=== PATIENT | male | born 1995 | race Caucasian/White ===

== ENCOUNTER 2017-01-28 15:34 | Emergency (ER) | payer OTHER ==
[2017-01-28 15:52] VITALS: BP 108/70
--- NOTE | 2017-01-28 16:24 | UC ---
Throat Pain/Nasal Aly HPI - HPI Summary HPI Summary: This is an otherwise healthy 21 yo male who presents with c/o ST and body aches for the last 3d. He reports associated body aches and feverish feeling, but has not measured his temp. He reports taking a couple of Advil yesterday, otherwise no home therapies. His roommate has had a recent cold, otherwise no sick contacts. - History of Current Complaint Chief Complaint: UCGeneralIllness Stated Complaint: THROAT PAIN - Allergies/Home Medications Allergies/Adverse Reactions: Allergies Allergy/AdvReac Type Severity Reaction Status Date / Time No Known Allergies Allergy Verified 01/28/17 15:52 Home Medications: Home Medications Cetirizine* [ZyrTEC 10 MG TAB*] 10 mg PO DAILY PRN 01/28/17 [History Confirmed 01/28/17] PMH/Surg Hx/FS Hx/Imm Hx Previously Healthy: Yes - Surgical History Surgical History: None - Family History Known Family History: Positive: None - Social History Alcohol Use: Occasionally Substance Use Type: None Smoking Status (MU): Never Smoked Tobacco Review of Systems Constitutional: Chills, Fatigue Skin: Negative Eyes: Negative ENT: Sore Throat Respiratory: Negative Cardiovascular: Negative Gastrointestinal: Negative Genitourinary: Negative Motor: Negative Neurovascular: Negative Musculoskeletal: Negative Neurological: Negative Psychological: Negative Is Patient Immunocompromised?: No All Other Systems Reviewed And Are Negative: Yes Physical Exam Triage Information Reviewed: Yes Appearance: Well-Appearing Vital Signs: Initial Vital Signs Temp 99.8 F 01/28/17 15:48 Pulse 88 01/28/17 15:48 Resp 18 01/28/17 15:48 BP 108/70 01/28/17 15:48 Pulse Ox 100 01/28/17 15:48 Vital Signs Reviewed: Yes ENT: Positive: Pharyngeal erythema, TMs normal, Tonsillar swelling. Negative: Nasal congestion, Tonsillar exudate Neck: Positive: Supple, Nontender, Enlarged Nodes @ - anterior cervical LAD Respiratory: Positive: Lungs clear, Normal breath sounds. Negative: Crackles, Rhonchi, Wheezing Cardiovascular Exam: Normal Cardiovascular: Positive: RRR, No Murmur Abdominal Exam: Normal Abdomen Description: Positive: Soft Musculoskeletal: Positive: Strength Intact Neurological Exam: Normal Neurological: Positive: Alert Psychological Exam: Normal Skin Exam: Normal Skin: Negative: rashes Diagnostics - Laboratory Diagnostic Studies Completed/Ordered: Rapid strep - neg Throat Pain/Nasal Course/Dx - Course Course Of Treatment: Patient presents with 3d h/o ST and body aches. No resp sxs. Pharyngx injected with anterior cervical LAD. Rapid strep neg. Test for mono. Recommend continuing symptomatic management. Follow up with PCP prn - Differential Dx/Diagnosis Differential Diagnosis/HQI/PQRI: Laryngitis, Peritonsillar Abscess, Pharyngitis , Tonsillitis Provider Diagnoses: 1. Acute pharyngitis Discharge - Discharge Plan Condition: Stable Disposition: HOME Patient Education Materials: Pharyngitis (ED) Referrals: [facility], [facility] [Primary Care Provider] - If Needed Additional Instructions: Instructions: 1. Continue to use ibuprofen for control of pain and fever 2. [facility] testing should be back tomorrow, you will be contacted with a positive result 3. Keep up with hydration at home
[2017-01-28 18:25] LABS: EBV Response YES
[2017-01-28 18:55] LABS: Mono Internal Control QC Line Present
[2017-01-30 14:53] LABS: EBV Capsid Ag IgG Ab Positive (Negative); EBV Capsid Ag IgM Ab Negative (Negative)
== END 2017-01-28 16:47 | disposition home or self-care (01) ==
LOC: UCEAST 15:34
DX: J02.9 Acute pharyngitis, unspecified (principal); M79.1 Myalgia; R53.83 Other fatigue; R68.83 Chills (without fever)
CPT/HCPCS: 36415; 86308; 86664; 86665; 87651; 99201; G0463

== ENCOUNTER 2017-03-09 15:27 | Emergency (ER) | payer OTHER ==
[2017-03-09 15:33] VITALS: BP 111/61
--- NOTE | 2017-03-09 15:58 | ED ---
Neck Pain - HPI Summary HPI Summary: 21 year old male presents with severe neck pain and fever. - History of Current Complaint Chief Complaint: UCGeneralIllness Stated Complaint: NECK PAIN, FEVER Time Seen by Provider: 03/09/17 15:37 Hx Obtained From: Patient Onset/Duration Of Injury/Symptoms: Minutes Timing: Constant Onset/Duration: Started days ago Severity Initially: Moderate Severity Currently: Moderate - Allergies/Home Medications Allergies/Adverse Reactions: Allergies Allergy/AdvReac Type Severity Reaction Status Date / Time No Known Allergies Allergy Verified 03/09/17 15:33 Home Medications: Home Medications Ibuprofen TAB* [Advil TAB*] 400 mg PO Q4H 03/09/17 [History Confirmed 03/09/17] PMH/Surg Hx/FS Hx/Imm Hx Previously Healthy: Yes Endocrine/Hematology History: Denies: Hx Diabetes, Hx Thyroid Disease Cardiovascular History: Denies: Hx Hypertension Respiratory History: Denies: Hx Asthma, Hx Chronic Obstructive Pulmonary Disease (COPD) GI History: Denies: Hx Ulcer Infectious Disease History: No Infectious Disease History: Denies: Hx Clostridium Difficile, Hx Hepatitis, Hx Human Immunodeficiency Virus (HIV), Hx of Known/Suspected MRSA, Hx Shingles, Hx Tuberculosis, Hx Known/ Suspected VRE, Hx Known/Suspected VRSA, History Other Infectious Disease, Traveled Outside the [place] in Last 30 Days - Family History Known Family History: Positive: None - Social History Alcohol Use: Occasionally Substance Use Type: Reports: None Smoking Status (MU): Never Smoked Tobacco Review of Systems Positive: Fever, Chills Eyes: Negative ENT: Negative Cardiovascular: Negative Respiratory: Negative Gastrointestinal: Negative Genitourinary: Negative Positive: Other - neck pain Skin: Negative Neurological: Negative All Other Systems Reviewed And Are Negative: Yes Physical Exam Triage Information Reviewed: Yes Vital Signs On Initial Exam: Initial Vitals Temp Pulse Resp BP Pulse Ox 37.2 C 79 18 111/61 100 03/09/17 15:30 03/09/17 15:30 03/09/17 15:30 03/09/17 15:30 03/09/17 15:30 Vital Signs Reviewed: Yes Appearance: Positive: Well-Appearing Skin: Positive: Warm Head/Face: Positive: Normal Head/Face Inspection Eyes: Positive: Normal ENT: Positive: Normal ENT inspection Neck: Positive: Supple Respiratory/Lung Sounds: Positive: Clear to Auscultation Cardiovascular: Positive: Normal Abdomen Description: Positive: Nontender Bowel Sounds: Positive: Present Musculoskeletal: Positive: Other - neck pain Diagnostics - Vital Signs Vital Signs Temp Pulse Resp BP Pulse Ox 03/09/17 15:30 37.2 C 79 18 111/61 100 - Laboratory Lab Statement: Any lab studies that have been ordered have been reviewed, and results considered in the medical decision making process. Neck Course/Dx - Diagnoses Provider Diagnoses: Neck pain, Fever Discharge - Discharge Plan Condition: Stable Disposition: OTHER Discharge Disposition Comment: patient suggested to go to er. Referrals: [facility] [Primary Care Provider] - Additional Instructions: PATIENT SUGGESTED TO GO TO THE ER FOR FEVER AND SEVERE NECK PAIN.
== END 2017-03-09 16:00 ==
LOC: UCEAST 15:27
DX: M54.2 Cervicalgia (principal); R50.9 Fever, unspecified
CPT/HCPCS: 99212; G0463

== ENCOUNTER 2017-03-09 16:26 | Emergency (ER) | payer OTHER ==
[2017-03-09] MEDS ORDERED: Methocarbamol TAB* 500 MG PO ONE (21:39)
[2017-03-09] MEDS ORDERED: Ibuprofen TAB* 600 MG PO ONE (21:39)
[2017-03-09 22:48] LABS: Hematocrit 40 % (42-52); Hemoglobin 13.2 g/dl (14.0-18.0); Mean Corpuscular HGB Conc 33 g/dl (31-36); Mean Corpuscular Hemoglobin 29 pg (27-31); Mean Corpuscular Volume 86 fL (80-94); Mean Platelet Volume 9 um3 (7.4-10.4); Red Blood Count 4.62 10^6/ul (4.0-5.4); Red Cell Distribution Width 13 % (10.5-15)
[2017-03-09 23:13] LABS: Albumin 4.3 g/dL (3.2-5.2); BUN/Creatinine Ratio 10.3 (8-20); C Reactive Protein 44.17 mg/L (< 5.00); Calcium 9.5 mg/dL (8.6-10.3); Direct Bilirubin 0.3 mg/dL (0.03-0.18); EGFR African American 164.9 (>60); EGFR Non-African American 128.2 (>60); Globulin 3.3 g/dL (2-4); Indirect Bilirubin 0.7 mg/dL (0.3-1.0); Potassium 3.5 mmol/L (3.5-5.0); Total Protein 7.6 g/dL (6.4-8.9)
[2017-03-09 23:27] LABS: Urine Bilirubin Negative (Negative); Urine Glucose 1+(50 mg/dL) (Negative); Urine Nitrite Negative (Negative)
[2017-03-10 00:19] LABS: Erythrocyte Sed Rate 15 mm/Hr (0-14)
--- NOTE | 2017-03-10 02:16 | ED ---
Lakeisha Handy Abhishek, scribed for César Ac MD on 03/09/17 at 2048 . Neck Pain - HPI Summary HPI Summary: This patient is a 21 year old M presenting to [facility] with a chief complaint of neck pain since this morning. The CC is described as gradually becoming worse. Pt states neck pain in right, back of neck and not radiating. The patient rates the pain 8/10 in severity. Symptoms aggravated by movement. Symptoms alleviated by nothing. Patient reports febrile on Wednesday but resolved since today, vomiting, numbness, ambulatory, nausea and decreased appetite. Patient denies ALDANA , trouble swallowing cough, visual changes, hearing changes. PMHx denies DM, and HTN. - History of Current Complaint Chief Complaint: EDGeneral Stated Complaint: FEVER /VOMITING/ NECK PAIN Hx Obtained From: Patient Onset/Duration Of Injury/Symptoms: Hours - this morning Timing: Constant Onset/Duration: Started hours ago - since this morning Severity Initially: Severe Severity Currently: Severe Pain Intensity: 8 Pain Scale Used: 0-10 Numeric Aggravating Factors: Movement Alleviating Factors: Nothing Associated Signs & Symptoms: Positive: Fever - this wednesday, since today resolved. Negative: Headache - Allergies/Home Medications Allergies/Adverse Reactions: Allergies Allergy/AdvReac Type Severity Reaction Status Date / Time No Known Allergies Allergy Verified 03/09/17 15:33 PMH/Surg Hx/FS Hx/Imm Hx Endocrine/Hematology History: Denies: Hx Diabetes, Hx Thyroid Disease Cardiovascular History: Denies: Hx Hypertension Respiratory History: Denies: Hx Asthma, Hx Chronic Obstructive Pulmonary Disease (COPD) GI History: Denies: Hx Ulcer - Immunization History Immunizations Up to Date: Yes Infectious Disease History: No Infectious Disease History: Denies: Hx Clostridium Difficile, Hx Hepatitis, Hx Human Immunodeficiency Virus (HIV), Hx of Known/Suspected MRSA, Hx Shingles, Hx Tuberculosis, Hx Known/ Suspected VRE, Hx Known/Suspected VRSA, History Other Infectious Disease, Traveled Outside the [place] in Last 30 Days - Family History Known Family History: Positive: None - Social History Alcohol Use: Occasionally Substance Use Type: Reports: None Smoking Status (MU): Never Smoked Tobacco Review of Systems Positive: Fever - this Wednesday but resolved since today Negative: Blurred Vision ENT: Other - Negative hearing changes Cardiovascular: Negative Positive: Cough Positive: Vomiting, Nausea, Other - decreased appetite Genitourinary: Negative Positive: Other - "toruble swallowing", ambulatory, neck pain in the right, back side Skin: Negative Positive: Numbness. Negative: Headache Psychological: Normal All Other Systems Reviewed And Are Negative: Yes Physical Exam - Summary Physical Exam Summary: Appearance: Well-appearing, Well-nourished Skin: Warm, Skin normal and dry Eyes: Normal ENT: Normal, Neck: pain reproduced by head turning and tilting Neck: Supple, nontender Respiratory: Clear to auscultation Cardiovascular: Normal Abdomen: Soft, nontender Bowel: Present Musculoskeletal: Normal, Strength/ROM Intact, Mild tenderness to the right trapezius area, No trismus Minimal anterior tender lymphadenopathy Negative kernig's and brudzinski signs Neurological: Normal, Alert, Oriented to Person, Cranial nerves 2-12 intact Psychiatric: Normal Triage Information Reviewed: Yes Vital Signs On Initial Exam: Initial Vitals Temp Pulse Resp BP Pulse Ox 99.0 F 89 20 128/71 98 03/09/17 16:28 03/09/17 16:28 03/09/17 16:28 03/09/17 16:28 03/09/17 16:28 Vital Signs Reviewed: Yes - Lena Coma Scale Coma Scale Total: 15 Diagnostics - Vital Signs Vital Signs Temp Pulse Resp BP Pulse Ox 03/09/17 16:28 99.0 F 89 20 128/71 98 - Laboratory Lab Results: Lab Results 03/09/17 03/09/17 03/09/17 Range/Units 22:15 22:15 22:15 WBC 8.0 (3.5-10.8) 10^3/ul RBC 4.62 (4.0-5.4) 10^6/ul Hgb 13.2 L (14.0-18.0) g/dl Hct 40 L (42-52) % MCV 86 (80-94) fL MCH 29 (27-31) pg MCHC 33 (31-36) g/dl RDW 13 (10.5-15) % Plt Count 165 (150-450) 10^3/ul MPV 9 (7.4-10.4) um3 Neut % (Auto) 61.7 (38-83) % Lymph % (Auto) 18.7 L (25-47) % Upson % (Auto) 18.8 H (1-9) % Eos % (Auto) 0.5 (0-6) % Baso % (Auto) 0.3 (0-2) % Absolute Neuts (auto) 5.0 (1.5-7.7) 10^3/ul Absolute Lymphs (auto) 1.5 (1.0-4.8) 10^3/ul Absolute Monos (auto) 1.5 H (0-0.8) 10^3/ul Absolute Eos (auto) 0 (0-0.6) 10^3/ul Absolute Basos (auto) 0 (0-0.2) 10^3/ul Absolute Nucleated RBC 0 10^3/ul Nucleated RBC % 0.1 ESR 15 H (0-14) mm/Hr INR (Anticoag Therapy) 1.18 H (0.89-1.11) APTT 29.1 (26.0-36.3) seconds Sodium 138 (133-145) mmol/L Potassium 3.5 (3.5-5.0) mmol/L Chloride 101 (101-111) mmol/L Carbon Dioxide 29 (22-32) mmol/L Anion Gap 8 (2-11) mmol/L BUN 8 (6-24) mg/dL Creatinine 0.78 (0.67-1.17) mg/dL Est GFR ( Amer) 164.9 (>60) Est GFR (Non-Af Amer) 128.2 (>60) BUN/Creatinine Ratio 10.3 (8-20) Glucose 84 (70-100) mg/dL Lactic Acid (0.5-2.0) mmol/L Calcium 9.5 (8.6-10.3) mg/dL Total Bilirubin 1.00 (0.2-1.0) mg/dL Direct Bilirubin 0.30 H (0.03-0.18) mg/dL Indirect Bilirubin 0.7 (0.3-1.0) mg/dL AST 14 (13-39) U/L ALT 16 (7-52) U/L Alkaline Phosphatase 47 (34-104) U/L C-Reactive Protein 44.17 H (< 5.00) mg/L Total Protein 7.6 (6.4-8.9) g/dL Albumin 4.3 (3.2-5.2) g/dL Globulin 3.3 (2-4) g/dL Albumin/Globulin Ratio 1.3 (1-3) Urine Color Urine Appearance Urine pH (5-9) Ur Specific [place] (1.010-1.030) Urine Protein (Negative) Urine Ketones (Negative) Urine Blood (Negative) Urine Nitrate (Negative) Urine Bilirubin (Negative) Urine Urobilinogen (Negative) Ur Leukocyte Esterase (Negative) Urine Glucose (Negative) 03/09/17 03/09/17 Range/Units 22:15 23:05 WBC (3.5-10.8) 10^3/ul RBC (4.0-5.4) 10^6/ul Hgb (14.0-18.0) g/dl Hct (42-52) % MCV (80-94) fL MCH (27-31) pg MCHC (31-36) g/dl RDW (10.5-15) % Plt Count (150-450) 10^3/ul MPV (7.4-10.4) um3 Neut % (Auto) (38-83) % Lymph % (Auto) (25-47) % Upson % (Auto) (1-9) % Eos % (Auto) (0-6) % Baso % (Auto) (0-2) % Absolute Neuts (auto) (1.5-7.7) 10^3/ul Absolute Lymphs (auto) (1.0-4.8) 10^3/ul Absolute Monos (auto) (0-0.8) 10^3/ul Absolute Eos (auto) (0-0.6) 10^3/ul Absolute Basos (auto) (0-0.2) 10^3/ul Absolute Nucleated RBC 10^3/ul Nucleated RBC % ESR (0-14) mm/Hr INR (Anticoag Therapy) (0.89-1.11) APTT (26.0-36.3) seconds Sodium (133-145) mmol/L Potassium (3.5-5.0) mmol/L Chloride (101-111) mmol/L Carbon Dioxide (22-32) mmol/L Anion Gap (2-11) mmol/L BUN (6-24) mg/dL Creatinine (0.67-1.17) mg/dL Est GFR ( Amer) (>60) Est GFR (Non-Af Amer) (>60) BUN/Creatinine Ratio (8-20) Glucose (70-100) mg/dL Lactic Acid 1.1 (0.5-2.0) mmol/L Calcium (8.6-10.3) mg/dL Total Bilirubin (0.2-1.0) mg/dL Direct Bilirubin (0.03-0.18) mg/dL Indirect Bilirubin (0.3-1.0) mg/dL AST (13-39) U/L ALT (7-52) U/L Alkaline Phosphatase (34-104) U/L C-Reactive Protein (< 5.00) mg/L Total Protein (6.4-8.9) g/dL Albumin (3.2-5.2) g/dL Globulin (2-4) g/dL Albumin/Globulin Ratio (1-3) Urine Color Yellow Urine Appearance Clear Urine pH 6.0 (5-9) Ur Specific [place] 1.021 (1.010-1.030) Urine Protein Negative (Negative) Urine Ketones 1+ H (Negative) Urine Blood Negative (Negative) Urine Nitrate Negative (Negative) Urine Bilirubin Negative (Negative) Urine Urobilinogen Positive H (Negative) Ur Leukocyte Esterase Negative (Negative) Urine Glucose 1+(50 mg/dl) H (Negative) Result Diagrams: 03/09/17 22:15 03/09/17 22:15 Lab Statement: Any lab studies that have been ordered have been reviewed, and results considered in the medical decision making process. Re-Evaluation - Re-Evaluation 0131 Re-Evaluation Time: 01:31 Change: Improved Neck Course/Dx - Course Course Of Treatment: much improved after meds, pt in no acute distress, improved ROM of neck, instructed to return immediately for any worsening or concerning sxs. agrees to and understnads dc instructions. - Diagnoses Provider Diagnoses: Neck pain Discharge - Discharge Plan Condition: Improved Disposition: HOME Prescriptions: Ibuprofen TAB* [Motrin TAB* 600 MG] 600 mg PO Q8H PRN #12 tab PRN Reason: Pain - Moderate Methocarbamol TAB* [Robaxin 500 MG TAB*] 1,000 mg PO BID PRN #10 tab PRN Reason: Pain - Moderate To Severe Patient Education Materials: Cervical Strain (ED), Neck Pain (ED) Additional Instructions: 1. PLEASE MAKE AN APPOINTMENT FIRST THING IN THE MORNING TO BE SEEN BY YOUR PRIMARY CARE DOCTOR SOON POSSIBLE 2. PLEASE RETURN IMMEDIATELY TO THE ER IF YOU HAVE ANY WORSENING OR CONCERNING SYMPTOMS The documentation as recorded by the Lakeisha pryor Abhishek accurately reflects the service I personally performed and the decisions made by me, César Ac MD.
[2017-03-10 02:24] VITALS: BP 102/68
--- NOTE | 2017-03-10 07:58 | RAD ---
HISTORY: Right-sided neck pain, pharyngeal abscess evaluation COMPARISONS: None VIEWS: Frontal and lateral views of the soft tissues of the neck, from the skull base through T1 FINDINGS: There is continuous air column from the pharynx the trachea. The prevertebral soft tissues are normal. The epiglottis is normal. The lung apices are clear. The skull base is unremarkable. Incidentally noted is partial fusion of the left first and second ribs, with a scoliotic curvature of the spine. IMPRESSION: UNREMARKABLE SOFT TISSUES OF THE NECK. IF THERE IS PERSISTENT CLINICAL CONCERN FOR PHARYNGEAL ABSCESS, CONTRAST ENHANCED CT IS MORE SENSITIVE.
== END 2017-03-10 02:25 | disposition home or self-care (01) ==
LOC: ED 16:26
DX: M54.2 Cervicalgia (principal); R50.9 Fever, unspecified; R11.2 Nausea with vomiting, unspecified; R05 Cough
CPT/HCPCS: 36415; 70360; 80053; 81003; 82248; 83605; 85025; 85610; 85652; 85730; 86140; 87040; 99284; A9270-GY